=== PATIENT | male | born 1985 | race Caucasian/White ===

== ENCOUNTER 2022-05-22 13:20 | Emergency (ER) | payer OTHER ==
--- NOTE | 2022-05-22 13:32 | ED Physician Documentation ---
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 He has been having some mild foot discomfort but yesterday while running up a slope noted more severe discomfort just proximal to the second left toe. Pain is mild at rest but more severe when walking. No other injuries. 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 Review of Systems Constitutional: reports: Reviewed and negative Nose: reports: Reviewed and negative Cardiac: reports: Reviewed and negative PD PAST MEDICAL HISTORY - Allergies Allergies/Adverse Reactions: Allergies Allergy/AdvReac Type Severity Reaction Status Date / Time No Known Drug Allergies Allergy Verified 05/22/22 13:40 PD ED PE NORMAL - Vitals Vital signs reviewed: Yes - General General: Alert and oriented X 3, No acute distress - Extremities Extremities: Other (Mild tenderness of the distal second metatarsal of the left foot without much in the way of pain with flexion or extension of that digit.) - Neuro Neuro: Alert and oriented X 3, Normal speech Results - Vitals Vitals: Vital Signs - 24 hr 05/22/22 13:34 Temperature 37.1 C Heart Rate 74 Respiratory 18 Rate Blood Pressure 151/104 H O2 Saturation 97 Oxygen O2 Source Room air - Rads (name of study) Three-view x-ray of the left foot is normal Radiology: EMP read contemporaneously PD MEDICAL DECISION MAKING - ED course ED course: 36-year-old gentleman with sprain involving the left foot. He really needed a note for no running more than anything else. 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 Departure - Departure Disposition: 01 Home, Self Care Clinical Impression: Sprain of foot, left Qualifiers: Encounter type: initial encounter Qualified Code(s): S93.602A - Unspecified sprain of left foot, initial encounter Condition: Good Record reviewed to determine appropriate education?: Yes Instructions: ED Sprain Foot Comments: Follow-up with your flight surgeon on Tuesday, until then Abundio is fine for pain. Ice and general rest as well. Return for new or worsening symptoms. Forms: Activity restrictions Discharge Date/Time: 05/22/22 13:52
[2022-05-22 13:40] VITALS: BP 151/104
--- NOTE | 2022-05-22 14:05 | XRAY Report ---
PROCEDURE: Foot 3 View LT INDICATIONS: foot inj TECHNIQUE: 3 views of the foot were acquired. COMPARISON: None FINDINGS: Bones: No fractures or dislocations. No suspicious bony lesions. Soft tissues: No tibiotalar joint effusion. Achilles tendon appears normal. IMPRESSION: Unremarkable left foot radiographs Reviewed by: Zi Suárez MD on 05/22/2022 1:04 PM KIANNA Approved by: Zi Suárez MD on 05/22/2022 1:04 PM AKDT Station ID: [id number]
== END 2022-05-22 13:52 | disposition home or self-care (01) ==
LOC: EDBD → ED 13:20
DX: S93.602A Unspecified sprain of left foot, initial encounter (principal); X58.XXXA Exposure to other specified factors, initial encounter; Y93.02 Activity, running
CPT/HCPCS: 99282; 99283

== ENCOUNTER 2022-07-31 11:39 | Emergency (ER) | payer OTHER ==
[2022-07-31 13:28] LABS: B. PARAPERTUSSIS- RESP PCR PAN NOT DETECTED; B. PERTUSSIS- RESP PCR PANEL NOT DETECTED; C. PNEUMONIAE- RESP PCR PANEL NOT DETECTED; CORONAVIRUS 229E-RESP PCR NOT DETECTED; CORONAVIRUS HKU1-RESP PCR NOT DETECTED; CORONAVIRUS NL63-RESP PCR NOT DETECTED; CORONAVIRUS OC43-RESP PCR NOT DETECTED; HUMAN METAPNEUMOVIRUS NOT DETECTED; INFLUENZA A- RESP PCR PANEL NOT DETECTED; INFLUENZA B - RESP PCR PANEL NOT DETECTED; M. PNEUMONIAE- RESP PCR PANEL NOT DETECTED; PARAINFLUENZA VIRUS 1 NOT DETECTED; PARAINFLUENZA VIRUS 2 NOT DETECTED; PARAINFLUENZA VIRUS 3 NOT DETECTED; PARAINFLUENZA VIRUS 4 NOT DETECTED; RHINOVIRUS/ENTEROVIRUS NOT DETECTED; RSV- RESP PCR PANEL NOT DETECTED
[2022-07-31 13:32] LABS: SARS-CoV-2 -RESP PCR PANEL DETECTED
--- NOTE | 2022-07-31 15:09 | ED Physician Documentation ---
PD HPI URI - Stated complaint Stated Complaint: FEVER,CHILLS,COUGH & HEAD ACHE - Chief complaint Chief Complaint: Fever - History obtained from History obtained from: Patient - History of Present Illness Timing - onset: Yesterday Timing duration: Days (2) Timing details: Abrupt onset, Still present Associated symptoms: Fever, Chills, Nasal congestion, Productive cough, Other (headache). No: Dyspnea, NVD Contributing factors: No: Sick contact, Immunocompromised, COPD / asthma Similar symptoms before: Has not had sx before (had mild URI symptoms about 3 weeks ago, improved with mild congestion.) Recently seen: Not recently seen Review of Systems Constitutional: reports: Fever, Chills, Myalgias Nose: reports: Congestion. denies: Rhinorrhea / runny nose Throat: reports: Sore throat Cardiac: denies: Chest pain / pressure Respiratory: reports: Cough. denies: Dyspnea, Wheezing GI: denies: Abdominal Pain, Nausea, Vomiting, Diarrhea (somewhat loose) Skin: denies: Rash Neurologic: reports: Headache (main component of symptoms). denies: Altered mental status PD PAST MEDICAL HISTORY - Past Medical History Cardiovascular: None Respiratory: None Endocrine/Autoimmune: None - Past Surgical History Past Surgical History: No - Present Medications Home Medications: Ambulatory Orders Medication Instructions Recorded Confirmed HYDROcod/ACETAM 5/325 [[place] 5/325] 1 ea PO Q6H PRN #12 tablet 07/31/22 Ondansetron Odt [Zofran] 4 mg TL Q6H PRN #10 tablet 07/31/22 - Allergies Allergies/Adverse Reactions: Allergies Allergy/AdvReac Type Severity Reaction Status Date / Time No Known Drug Allergies Allergy Verified 07/31/22 12:00 - Social History Does the pt smoke?: No Smoking Status: Former smoker Does the pt have substance abuse?: No - Immunizations Immunizations are current?: Yes - POLST Patient has POLST: No PD ED PE NORMAL - Vitals Vital signs reviewed: Yes - General General: Alert and oriented X 3, No acute distress, Well developed/nourished - HEENT HEENT: Ears normal, Pharynx benign - Neck Neck: Supple, no meningeal sign, No bony TTP - Cardiac Cardiac: No murmur. No: RRR (mild tachycardia) - Respiratory Respiratory: No respiratory distress, Clear bilaterally - Abdomen Abdomen: Soft, Non tender - Derm Derm: Normal color, Warm and dry - Extremities Extremities: No edema, No calf tenderness / cord - Neuro Neuro: Alert and oriented X 3, No motor deficit, Normal speech Results - Vitals Vitals: Vital Signs - 24 hr 07/31/22 11:59 Temperature 37.6 C Heart Rate 103 H Respiratory 14 Rate Blood Pressure 138/81 H O2 Saturation 100 Oxygen O2 Source Room air - Labs Labs: Laboratory Tests 07/31/22 07/31/22 12:07 12:07 Nasal Adenovirus (PCR) NOT DETECTED Nasal B. parapertussis DNA (PCR) NOT DETECTED Nasal Coronavir 229E PCR NOT DETECTED Nasal Coronavir HKU1 PCR NOT DETECTED Nasal Coronavir NL63 PCR NOT DETECTED Nasal Coronavir OC43 PCR NOT DETECTED Nasal Enterovir/Rhinovir PCR NOT DETECTED Nasal Influenza B PCR NOT DETECTED Nasal Influenza A PCR NOT DETECTED Nasal Parainfluen 1 PCR NOT DETECTED Nasal Parainfluen 2 PCR NOT DETECTED Nasal Parainfluen 3 PCR NOT DETECTED Nasal Parainfluen 4 PCR NOT DETECTED Nasal RSV (PCR) NOT DETECTED Nasal B.pertussis DNA PCR NOT DETECTED Nasal C.pneumoniae (PCR) NOT DETECTED Sammie Human Metapneumo PCR NOT DETECTED Nasal M.pneumoniae (PCR) NOT DETECTED Nasal SARS-CoV-2 (PCR) DETECTED A Influenza A (Rapid) Negative Influenza B (Rapid) Negative PD MEDICAL DECISION MAKING - ED course Complexity details: considered differential (He and his had mild upper respiratory symptoms 3 weeks ago with negative home COVID test. He now has viral type symptoms since yesterday with a positive COVID here. Presume this is a new infection.), d/w patient Departure - Departure Disposition: 01 Home, Self Care Clinical Impression: Viral illness, COVID-19 Condition: Stable Record reviewed to determine appropriate education?: Yes Instructions: ED Viral Syndrome Follow-Up: [facility] [Provider Group] Prescriptions: HYDROcod/ACETAM 5/325 [[place] 5/325] 1 ea PO Q6H PRN #12 tablet PRN Reason: Pain Ondansetron Odt [Zofran] 4 mg TL Q6H PRN #10 tablet PRN Reason: Nausea / Vomiting Comments: Your viral respiratory PCR panel is positive for COVID. I presume that your current illness and accounts for your symptoms. Stay well-hydrated. Use Tylenol every 4-6 hours as needed for fevers and pains. To that you can add Aleve 2 tablets very 8 hours if needed. To that you can add hydrocodone every 4-6 hours if needed for worse headache. Headache can be a predominant part of some of the viral illnesses. Your interaction and alertness and exam are not suggestive of or worrisome for meningitis or such at this time. You can use the pack Slo-Bid antiviral medications twice daily for 5 days per e packet kit instructions. Add ondansetron every 4-6 hours if needed for nausea. I presume you would need 5 days off work for COVID. I sent your prescription to the [facility] in [place]. I am prescribing a short course of narcotic pain medication for you. These are potentially dangerous and addictive medications that should be used carefully. These medications may constipate you. Take an [id number] stool softener such as docusate twice daily with plenty of water while taking these medications. If you go 24 hours without a bowel movement, take [id number] MiraLAX, per package instructions. Do not drink or drive while taking these medications. If you received narcotic or sedating medications while in the emergency department do not drive for 24 hours. Store this medication in a safe, secure place and out of reach of children. It is a violation of federal law to give or sell this medication to another person or to use in a manner other than prescribed. The ED will not refill narcotic prescriptions, including prescriptions lost or stolen. You can dispose of unwanted medications at the [facility]'s office or at several pharmacies such as [facility].
[2022-07-31 16:06] VITALS: BP 136/92
[2022-07-31] MEDS: NIRMATRELVIR/RITONAVIR PREPACK PO STA (16:10)
[2022-07-31] MEDS: HYDROcod/ACETAM 5/325 MG TABLET PO STA (16:10)
== END 2022-07-31 16:22 | disposition home or self-care (01) ==
LOC: ED 11:39
DX: U07.1 COVID-19 (principal); Z87.891 Personal history of nicotine dependence
CPT/HCPCS: 87275; 87276; 87633; 99282; 99283; A9270; J3490